=== PATIENT | female | born 1955 | race Caucasian/White ===

== ENCOUNTER → 2017-10-11 | Outpatient (CLI) | payer MEDICAID | LOC: BMCIMAGING 10:20 | PROVIDERS: ATTEND Physician Assistant | DX: N64.4 Mastodynia (principal); R92.8 Other abnormal and inconclusive findings on diagnostic imaging of breast ==

== ENCOUNTER 2017-12-23 09:07 | Emergency (ER) | payer MEDICAID ==
--- NOTE | 2017-12-23 10:22 | EDPHY ---
H & P Time Seen by Provider: 12/23/17 10:00 HPI/ROS: CHIEF COMPLAINT: Bug bites HISTORY OF PRESENT ILLNESS: Patient is a 62-year-old female who presents to the emergency department to have multiple bug bites evaluated. Patient states she was working in the garden yesterday. When she came inside she noticed she had a bug bite on both lower extremities and her back. She woke up this morning with some mild swelling around her right eye. She has had no fevers or chills. No swelling in her mouth or throat. No shortness of breath. No nausea or vomiting. Patient has mild pain in both ankles. REVIEW OF SYSTEMS: My complete review of systems is negative except as mentioned in the HPI. Past Medical/Surgical History: Negative Past surgical history: Orthopedic knee surgery. 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 HEENT: Patient has minimal swelling around her right eye. There is no warmth or significant erythema. It is not tender to the touch. Eyes normal to inspection, normal pharynx, no signs of dehydration. NECK: No thyromegaly, no lymphadenopathy, supple. RESPIRATORY: Clear to auscultation bilaterally, no rales, rhonchi or wheezing. CVS: Regular rate and rhythm, no rubs, murmurs, or gallops. ABDOMEN: Soft, nontender, nondistended, no organomegaly. BACK: See skin exam. Normal to inspection, no CVA tenderness. SKIN: Patient has a small bump on her left medial malleolus and just superior to her right calcaneus. Patient also has a small bump in her mid back. None of these locations have significant swelling or erythema. They are not tender to touch. No blanching. There is no streaking up the leg. Normal color, no rash, warm, dry. No pallor. EXTREMITIES: No pedal edema, no calf tenderness, no Homans sign or cords, no joint swelling. NEURO/PSYCH: Alert and oriented, normal mood and affect, normal motor sensory exam. Constitutional: Initial Vital Signs Temperature (C) 36.8 C 12/23/17 09:15 Heart Rate 79 12/23/17 09:15 Respiratory Rate 16 12/23/17 09:15 Blood Pressure 98/52 L 12/23/17 09:15 O2 Sat (%) 97 12/23/17 09:15 O2 Delivery Mode Room Air Allergies/Adverse Reactions: No Known Allergies Allergy (Verified 12/23/17 09:18) Home Medications: Medication Instructions Recorded Cephalexin [Keflex (*)] 500 mg PO QID 7 Days cap 12/23/17 Medical Decision Making ED Course/Re-evaluation: In the emergency department I discussed possible etiologies with the patient and her . I answered all their questions. At this time I do not feel the patient is bug bites and appear infected. I explained this to the patient and her . She was given a prescription of Keflex pole take this only of redness worsens. At this time I recommended Benadryl. She did not want the areas demarcated with a pen. Departure - Departure Disposition: Home, Routine, Self-Care Clinical Impression: Bug bite Qualifiers: Encounter type: initial encounter Qualified Code(s): W57.XXXA - Bitten or stung by nonvenomous insect and other nonvenomous arthropods, initial encounter Condition: Good Instructions: Insect Bite or Sting (ED) Additional Instructions: Return with increasing redness, swelling, fever or any other concerns. You been given an antibiotic. Take this only if the area worsens. Referrals: Christina Frazier [Primary Care Provider] - 2-3 days without fail Prescriptions: Cephalexin [Keflex (*)] 500 mg PO QID 7 Days cap
[2017-12-23 10:39] VITALS: BP 100/62
== END 2017-12-23 10:40 | disposition home or self-care (01) ==
DX: S80.861A Insect bite (nonvenomous), right lower leg, initial encounter (principal); S80.862A Insect bite (nonvenomous), left lower leg, initial encounter; Z87.891 Personal history of nicotine dependence; W57.XXXA Bitten or stung by nonvenomous insect and other nonvenomous arthropods, initial encounter; Y92.007 Garden or yard of unspecified non-institutional (private) residence as the place of occurrence of the external cause; Y99.8 Other external cause status; Y93.89 Activity, other specified

== ENCOUNTER → 2018-08-07 | Outpatient (CLI) | payer MEDICAID | LOC: FIMAGING 15:06 | PROVIDERS: ATTEND Physician Assistant | DX: Z03.89 Encounter for observation for other suspected diseases and conditions ruled out (principal) ==